=== PATIENT | female | born 2000 | race African-American/Black ===

== ENCOUNTER 2023-04-09 08:42 | Outpatient (CLI) | payer BC | END 2023-04-09 08:43 | disposition home or self-care (01) | LOC: CSHULT 08:42 | PROVIDERS: ATTEND Student in an Organized Health Care Education/Training Program | DX: N63.21 Unspecified lump in the left breast, upper outer quadrant (principal) ==

== ENCOUNTER 2025-06-06 19:00 | Inpatient (IN) | payer BC ==
[2025-06-06] MEDS ORDERED: Ondansetron PF 4 MG/2 ML Vial IVP PRN (20:57)
[2025-06-06] MEDS ORDERED: Acetaminophen 500 MG TAB PO PRN (20:57)
[2025-06-06] MEDS ORDERED: Carboprost 250 MCG/ML AMP IM PRN (20:57)
[2025-06-06] MEDS ORDERED: Tranexamic Acid 1,000 MG/10 ML VIAL IVP PRN (20:57)
[2025-06-06] MEDS ORDERED: Lidocaine 1% (PF) 30 ML VIAL SC PRN (20:57)
[2025-06-06] MEDS ORDERED: hydrALAZINE 20 MG/ML VIAL SLOW IVP PRN (20:57)
[2025-06-06] MEDS ORDERED: Diphenoxylate HCl/Atropine Tablet PO PRN (20:57)
[2025-06-06] MEDS ORDERED: Methylergonovine 0.2 MG/ML VIAL IM PRN (20:57)
[2025-06-06] MEDS ORDERED: Ibuprofen 800 MG TAB PO PRN (20:57)
[2025-06-06] MEDS ORDERED: HYDROcodone/Acetaminophen 5/325 mg Tablet PO PRN (20:57)
[2025-06-06] MEDS ORDERED: Oxytocin 30 units/NS 500 ML 500 ML IV SCH (21:00)
[2025-06-06 22:02] VITALS: BMI 28.7
[2025-06-06 22:19] LABS: Hematocrit 36.5 % (34.9-44.5); Hemoglobin 11.7 g/dL (12.0-15.5); Mean Corpuscular Hemoglobin 25.7 pg (27.0-33.0); Mean Corpuscular Volume 80.0 fL (81.6-98.3); Platelet Count 265 10x3/uL (150-450); Red Blood Cell (RBC) Count 4.56 10x6/uL (3.90-5.03); White Blood Cell (WBC) Count 6.52 10x3/uL (3.5-10.5)
[2025-06-06 22:54] LABS: Syphilis Antibody Index 0.09 S/CO (<1.00 Non-Reactive)
[2025-06-06 22:55] LABS: Hep B Surf Ag - L&D Non-Reactive S/CO (NonReactive)
[2025-06-07] MEDS: Simethicone Chewable 80 MG TAB PO PRN (00:52)
[2025-06-07] MEDS: Oxytocin 30 units/NS 500 ML 500 ML IV SCH (11:00)
[2025-06-07] MEDS: fentaNYL/Ropivacaine Epidural 100 ML ONE (12:56)
[2025-06-07] MEDS ORDERED: diphenhydrAMINE 50 MG/ML VIAL IVP PRN ×2 (13:04→20:20)
[2025-06-07] MEDS ORDERED: Acetaminophen 325 MG TAB PO PRN (13:04)
[2025-06-07] MEDS ORDERED: Ondansetron PF 4 MG/2 ML Vial IVP PRN ×3 (13:04→20:20)
[2025-06-07] MEDS ORDERED: Communication Order-Pharmacy FS SCH ×2 (13:15→20:30)
[2025-06-07] MEDS ORDERED: fentaNYL 2 mcg/Ropivacaine 0.2% Epidural 100 ML CADD EPIDURAL SCH (13:15)
[2025-06-07] MEDS ORDERED: Ketorolac Tromethamine 30 MG (1 mL) VIAL IVP PRN (20:20)
[2025-06-07] MEDS ORDERED: Meperidine HCl/PF 25 MG (1 mL) VIAL SLOW IVP PRN (20:20)
[2025-06-07] MEDS: Ketorolac Tromethamine 30 MG (1 mL) VIAL IVP SCH (21:00)
[2025-06-08] MEDS ORDERED: Boostrix 0.5 ML (Tdap) VIAL (>/=7 yrs of age) IM ONE (03:10)
[2025-06-08] MEDS ORDERED: Bisacodyl 10 MG SUPP PR PRN (03:10)
[2025-06-08] MEDS ORDERED: Ondansetron PF 4 MG/2 ML Vial IVP PRN (03:10)
[2025-06-08] MEDS ORDERED: Simethicone Chewable 80 MG TAB PO PRN (03:10)
[2025-06-08] MEDS ORDERED: Lanolin Ointment 7 GM TUBE TOP PRN (03:10)
[2025-06-08] MEDS ORDERED: diphenhydrAMINE 25 MG CAP PO PRN (03:10)
[2025-06-08] MEDS ORDERED: hydrALAZINE 20 MG/ML VIAL SLOW IVP PRN (03:10)
[2025-06-08] MEDS: Ketorolac Tromethamine 30 MG (1 mL) VIAL IVP SCH (03:47)
[2025-06-08 05:28] LABS: Hematocrit 29.1 % (34.9-44.5); Hemoglobin 9.5 g/dL (12.0-15.5); Mean Corpuscular Hemoglobin 26.1 pg (27.0-33.0); Mean Corpuscular Volume 79.9 fL (81.6-98.3); Platelet Count 241 10x3/uL (150-450); Red Blood Cell (RBC) Count 3.64 10x6/uL (3.90-5.03); White Blood Cell (WBC) Count 15.72 10x3/uL (3.5-10.5)
[2025-06-08] MEDS: Ferrous Sulfate 325 MG TAB PO SCH ×2 (07:42→21:24)
[2025-06-08] MEDS ORDERED: Meperidine HCl/PF 25 MG (1 mL) VIAL IM PRN (08:30)
[2025-06-08] MEDS: Azithromycin 500 MG VIAL ONE ×2 (13:05→13:06)
[2025-06-08] MEDS: Ondansetron PF 4 MG/2 ML Vial ONE (13:06)
[2025-06-08] MEDS: Dexamethasone 10 MG/ML VIAL ONE (13:06)
[2025-06-08] MEDS: Erythromycin Base 0.5% Oint 1 GM TUBE ONE (13:06)
[2025-06-08] MEDS: PHENYLEPHRINE-NS 100 MCG/ML 10 ML SYRINGE ONE (13:06)
[2025-06-08] MEDS: Oxytocin 10 UNITS/ML VIAL ONE (13:06)
[2025-06-08] MEDS: HYDROcodone/Acetaminophen 5/325 mg Tablet PO PRN (14:52)
[2025-06-08] MEDS: Ibuprofen 800 MG TAB PO SCH (22:58)
[2025-06-09] MEDS: HYDROcodone/Acetaminophen 5/325 mg Tablet PO PRN (01:57)
[2025-06-10 12:10] VITALS: BP 120/84; TEMP 98.2
== END 2025-06-10 13:02 | disposition home or self-care (01) | DRG 788 ==
LOC: CSHLD 20:34 → UNDOADMIN 20:34 → CSHLD 21:00 → UNDOADMIN 06-07 20:23 → CSHLD 06-07 20:23 → CSHPP 06-07 23:15
PROVIDERS: ADMIT Family Medicine; ATTEND Family Medicine
PROC: 10D00Z1 Extraction of Products of Conception, Low, Open Approach (ICD-10-PCS; principal; 2025-06-07)
DX: O48.0 Post-term pregnancy (principal); Z37.0 Single live birth; Z3A.40 40 weeks gestation of pregnancy; Z79.82 Long term (current) use of aspirin; Z79.899 Other long term (current) drug therapy; O76 Abnormality in fetal heart rate and rhythm complicating labor and delivery; O62.1 Secondary uterine inertia
CPT/HCPCS: 36415; 51702; 85027; 86780; 86850; 86900; 86901; 87340; J1100; J1885; J2274; J2310; J2405; J2590